=== PATIENT | male | born 1955 | race Two or more races ===

== ENCOUNTER 2022-02-22 16:58 | Observation (INO) | payer MEDICARE, OTHER ==
[2022-02-22] MEDS ORDERED: ASPIRIN 81 MG CHEWABLE TABLETS PO ONE (19:40)
[2022-02-22] MEDS ORDERED: ASPIRIN 81 MG CHEWABLE TABLETS ONE (20:08)
[2022-02-22 20:39] LABS: HEMATOCRIT 30.8 % (35.4-49); HEMOGLOBIN 9.4 GM/dL (11.7-16.9); MCH 23.2 pg (25.7-33.7); MCHC 30.6 g/dl (32.0-35.9); MEAN PLT VOLUME 6.5 fl (7.5-11.1); PLATELET COUNT 391 10^3/uL (134-434); RBC 4.05 M/mm3 (4.00-5.60); RDW 18.4 % (11.9-15.9); WHITE BLOOD COUNT 4.7 K/mm3 (4.0-10.0)
[2022-02-22 21:08] LABS: CALCIUM 9.6 mg/dL (8.5-10.1)
[2022-02-22 21:09] LABS: ALBUMIN 4.1 g/dl (3.4-5.0); BLOOD UREA NITROGEN 19.3 mg/dL (7-18)
[2022-02-22 21:13] LABS: BILIRUBIN,TOTAL 0.4 mg/dL (0.2-1); TOT PROT 8.5 g/dl (6.4-8.2)
[2022-02-22] MEDS ORDERED: ACETAMINOPHEN 1000 MG/100 ML BAG IVPB ONE (22:26)
[2022-02-22] MEDS ORDERED: ACETAMINOPHEN 500 MG TABLET (FP) PO ONE (22:33)
[2022-02-22] MEDS ORDERED: ACETAMINOPHEN 325 MG TABLET (FP) ONE (23:25)
[2022-02-23 05:16] VITALS: BMI 26.5
[2022-02-23 07:43] LABS: CALCIUM 8.6 mg/dL (8.5-10.1)
[2022-02-23 07:44] LABS: ALBUMIN 3.5 g/dl (3.4-5.0); BLOOD UREA NITROGEN 20.8 mg/dL (7-18); MAGNESIUM 1.9 mg/dL (1.8-2.4)
[2022-02-23 07:48] LABS: BILIRUBIN,TOTAL 0.3 mg/dL (0.2-1); PHOSPHOROUS 3.6 mg/dL (2.5-4.9); TOT PROT 7.1 g/dl (6.4-8.2)
[2022-02-23 08:41] LABS: HEMATOCRIT 28.4 % (35.4-49); HEMOGLOBIN 8.6 GM/dL (11.7-16.9); MCH 22.9 pg (25.7-33.7); MCHC 30.3 g/dl (32.0-35.9); MEAN CELL VOLUME 75.5 fl (80-96); MEAN PLT VOLUME 6.9 fl (7.5-11.1); PLATELET COUNT 307 10^3/uL (134-434); RBC 3.76 M/mm3 (4.00-5.60); RDW 18.1 % (11.9-15.9); RETICULOCYTES 1.93 % (0.5-1.5); WHITE BLOOD COUNT 3.5 K/mm3 (4.0-10.0)
[2022-02-23] MEDS ORDERED: REGADENOSON 0.4 MG/5 ML PRE-FILLED SYRINGE IVPUSH ONE ×2 (11:45→12:00)
[2022-02-23 13:22] LABS: ANISOCYTOSIS 0; MACROCYTOSIS 0; OVALOCYTE 1+
[2022-02-23] MEDS: CLOPIDOGREL BISULFATE 75 MG TABLET (FP) PO SCH (15:01)
[2022-02-23] MEDS: ASPIRIN 81 MG CHEWABLE TABLETS PO SCH (15:01)
[2022-02-23] MEDS: LOSARTAN POTASSIUM 25 MG TABLET PO SCH (15:02)
[2022-02-23] MEDS: ENOXAPARIN NA (PORCINE) 40 MG/0.4 ML DISP.SYRIN SQ SCH (15:02)
[2022-02-23] MEDS: TAMSULOSIN HCL 0.4 MG CAP PO SCH (15:02)
[2022-02-23] MEDS: SERTRALINE HCL 25 MG TABLET (FP) PO SCH (15:02)
[2022-02-23] MEDS ORDERED: ATORVASTATIN CA 40 MG TABLET (FP) PO SCH (22:00)
[2022-02-24 05:48] VITALS: TEMP 98.1
[2022-02-24] MEDS: CLOPIDOGREL BISULFATE 75 MG TABLET (FP) PO SCH (09:03)
[2022-02-24] MEDS: ENOXAPARIN NA (PORCINE) 40 MG/0.4 ML DISP.SYRIN SQ SCH (09:04)
[2022-02-24] MEDS: ASPIRIN 81 MG CHEWABLE TABLETS PO SCH (09:04)
[2022-02-24] MEDS: LOSARTAN POTASSIUM 25 MG TABLET PO SCH (09:04)
[2022-02-24] MEDS: SERTRALINE HCL 25 MG TABLET (FP) PO SCH (09:04)
[2022-02-24] MEDS: TAMSULOSIN HCL 0.4 MG CAP PO SCH (09:04)
[2022-02-24 10:06] VITALS: BP 112/85; PULSE 89; RESP 22
== END 2022-02-24 09:52 | disposition home or self-care (01) ==
LOC: JER 16:58 → JERBED 21:30 → UNDOADMOB 21:30 → INTOOBSV 23:04 → OBSVTOIN 23:04 → J4W 02-23 05:08 → JERBED 02-23 05:08 → INTOOBSV 02-23 14:36 → JERBED 02-23 14:36 → J4W 02-23 14:36 → UNDOADMOB 02-23 14:36 → OBSVTOIN 02-23 14:36 → J4W 02-24 09:52 → UNDODISOB 02-24 09:52
PROVIDERS: ADMIT Internal Medicine; ATTEND Internal Medicine
PROC: 3E023GC Introduction of Other Therapeutic Substance into Muscle, Percutaneous Approach (ICD-10-PCS; principal; 2022-02-24)
PROC: 3E033GC Introduction of Other Therapeutic Substance into Peripheral Vein, Percutaneous Approach (ICD-10-PCS; 2022-02-24)
DX: I25.10 Atherosclerotic heart disease of native coronary artery without angina pectoris (principal); I11.9 Hypertensive heart disease without heart failure; E78.00 Pure hypercholesterolemia, unspecified; Z87.891 Personal history of nicotine dependence; Z86.73 Personal history of transient ischemic attack (TIA), and cerebral infarction without residual deficits
CPT/HCPCS: 36415; 71046-TC-FY; 78452-TC; 80053; 80061; 82728; 82784; 83036; 83540; 83550; 83615; 83735; 84100; 84155; 84165; 84443; 84466; 84484; 85027; 85045; 93005; 93010; 93017; 93306-TC; 96372; 96374; 99285-25; A9502; C9803-CS; G0378; J2785; U0003; U0005

== ENCOUNTER 2024-04-15 21:21 | Emergency (ER) | payer MEDICARE, OTHER ==
[2024-04-15 21:30] VITALS: BP 111/64; PULSE 63; RESP 20; TEMP 98.4; BMI 28.7
[2024-04-15 23:03] LABS: BASO % 0.4 % (0-2.0); EOS % 4.3 % (0-4.5); HEMATOCRIT 31.6 % (35.4-49); HEMOGLOBIN 10.2 GM/dL (11.7-16.9); LYMPH % 22.8 % (8-40); MCH 28.9 pg (25.7-33.7); MCHC 32.3 g/dl (32.0-35.9); MEAN CELL VOLUME 89.7 fl (80-96); MEAN PLT VOLUME 6.7 fl (7.5-11.1); MONO % 11.2 % (3.8-10.2); NEUT % 61.3 % (42.8-82.8); PLATELET COUNT 252 10^3/uL (134-434); RBC 3.52 M/mm3 (4.00-5.60); RDW 17.5 % (11.9-15.9); WHITE BLOOD COUNT 3.2 K/mm3 (4.0-10.0)
[2024-04-15 23:15] LABS: INR 0.96 (0.83-1.09); PROTHROMBIN TIME (PATIENT) 10.9 SEC (9.7-13.0)
[2024-04-15 23:18] LABS: ACTIVATED PTT 27.1 SECONDS (25.2-36.5)
[2024-04-15 23:34] LABS: POTASSIUM 4.4 mmol/L (3.5-5.1)
[2024-04-15 23:36] LABS: ALBUMIN 3.5 g/dl (3.4-5.0); CALCIUM 9.1 mg/dL (8.5-10.1)
[2024-04-15 23:39] LABS: CREATININE 1.1 mg/dL (0.55-1.3)
[2024-04-15 23:41] LABS: BILIRUBIN,TOTAL 0.2 mg/dL (0.2-1); TOT PROT 6.8 g/dl (6.4-8.2)
== END 2024-04-16 02:21 | disposition home or self-care (01) ==
LOC: JER 21:21
DX: R00.2 Palpitations (principal); R06.02 Shortness of breath; R07.9 Chest pain, unspecified
CPT/HCPCS: 36415; 71045-TC-FY; 80053; 84484; 85025; 85379; 85610; 85730; 93005; 93010; 99285-25